=== PATIENT | female | born 1990 | race Caucasian/White ===

== ENCOUNTER 2017-09-21 20:09 | Inpatient (IN) | payer OTHER, BC ==
[~2017-09-21] VITALS: Ht 175.3 cm; Wt 112.0 kg
--- NOTE | 2017-09-22 04:40 | NUR ---
09/22/17 0440 DE LA TORRE,ANGIE Simmons 0415: MOM BABY. DENIES N/V AND PAIN. DR. CLAIRE IN TO SPEAK WITH PATIENT. 0574: REPORT GIVEN TO [facility]BC RN.
--- NOTE | 2017-09-25 07:49 | PR ---
[facility] [address] [facility] [place] [address] Signed PP Progress Notes Datetime Report Generated by CPN: 09/25/2017 07:49 SUBJECTIVE: [id number] Pain: Within normal limits Nausea/Vomiting: Denies Vital Signs: [id number] Vital Signs: Reviewed; Within Normal Limits Notable Details: Normotensive EXAM: [id number] Cardiovascular: Normal Respiratory: Normal Abdomen/Uterus: Normal Lochia: Normal Breasts: Normal CVA Tenderness: Normal Extremities: Normal Incision: Normal Progress: Normal IMPRESSION/PLAN/PROCEDURES: [id number] Impression: Normal progression Other Impression: HELLP - resolving Plan: Discharge Procedures: None Progress Notes: Doing well, ready to go home. Signing Physician: Abigail Claire MD CC: *Electronically Signed* 09/25/17 0749 ABIGAIL CLAIRE MD PATIENT NAME: DIAMOND FOX PROGRESS NOTE DATE OF : [birth year] PHYSICIAN: ABIGAIL CLAIRE MD RPT #: [id number] REPORT IS CONFIDENTIAL AND NOT TO BE RELEASED WITHOUT AUTHORIZATION
--- NOTE | 2017-09-25 10:41 | OR ---
[facility] [address] [place], [place] [address] Signed DATE OF OPERATION: 09/22/2017 SURGEON: Arvind Mondragon MD PREOPERATIVE DIAGNOSES: 1. HELLP syndrome. 2. Spontaneous rupture of membranes, remote from delivery. POSTOPERATIVE DIAGNOSES: 1. HELLP syndrome. 2. Spontaneous rupture of membranes, remote from delivery. PROCEDURE: Primary low-transverse segment cesarian section, delivery of live male . ANESTHESIA: Spinal. ESTIMATED BLOOD LOSS: 700 mL. COMPLICATIONS: None. DRAINS: Bernabe to bladder. FINDINGS: Live male infant, Apgars 8 and 9, weight 8 pound 0 ounces. Normal uterus. Normal tubes and ovaries bilaterally. DESCRIPTION: The patient was brought into the operating room, placed in supine position after adequate spinal anesthesia was obtained, prepped and draped in usual sterile fashion. The patient already had a Bernabe catheter in place. Pfannenstiel skin incision was made with a scalpel and extended through the subcutaneous tissue with a Bovie. The fascia was nicked with a scalpel and extended in a transverse fashion using curved scissors. The underlying abdominal musculature was bluntly and sharply from the fascia above and below the incision. The abdominal musculature was bluntly along the midline. The peritoneum was grasped with hemostats, elevated and then opened and extended in a vertical fashion using Metzenbaum scissors. The Savage self-retaining retractor was then inserted into the incision and tightened in place. Lower uterine segment was identified. The bladder was noted to be well below the area and so, a small que was made in the midline lower uterine segment. Finger dissection was used to extend the incision in a transverse fashion. Clear fluid came from the incision. The infant was noted to be in vertex OP presentation. The infant's head was easily delivered from the incision. The rest of the infant was easily delivered from the incision, and the mouth and nose were Electronically Signed By: ARVIND MONDRAGON MD 09/25/17 1041 PATIENT NAME: DIAMOND FOX OPERATIVE REPORT DATE OF : 86 PHYSICIAN: ARVIND MONDRAGON MD REPORT #: [id number] REPORT IS CONFIDENTIAL AND NOT TO BE RELEASED WITHOUT AUTHORIZATION [facility] [address] [place], [place] [address] Signed suctioned with bulb syringe. Umbilical cord was doubly clamped and cut. The infant was passed off the table in good condition to awaiting nurse. Placenta was manually removed and uterine cavity was explored with lap pad to remove any retaining membrane. An angled stitch of #0 Monocryl was placed in one end of the incision and a running locking stitch of #0 Monocryl starting at the other end used to close the incision. A second running stitch of #0 Monocryl was used to imbricate the first layer. A small amount of bleeding in the right angle where the extension continued to the broad ligament, so finger was placed behind the broad ligament, and [id number] stitch of #0 Monocryl was carefully placed in this area. This did seem to control the bleeding. The entire pelvis was irrigated, suctioned, examined, and noted to have good hemostasis. The Savage retractor was removed. Evicel was then placed along the incision and particularly on the right angle, and then sheet of ACell placed over the lower uterine segment. The interval peritoneum was closed using running stitch of 2-0 Vicryl suture. The abdominal musculature was reapproximated using interrupted stitch of #0 Vicryl suture. Abdominal wall incision was irrigated, suctioned, and examined, and any bleeding spots cauterized with Bovie. Powdered ACell was sprinkled on the abdominal musculature and then the fascia was closed using 2 running stitch of #0 Vicryl suture meeting in the midline. Subcutaneous tissue was irrigated, suctioned, examined, and any bleeding spots were cauterized with Bovie. The fat and subcutaneous tissue were then closed using interrupted stitches of 3-0 Vicryl suture. Skin was reapproximated using skin clips. The patient tolerated the procedure well and went to recovery room in good condition. Sponge, needle, and instrument counts were correct at the end of procedure. MD CLAUDIA Navarro/MODL /[id number] Electronically Signed By: ARVIND MONDRAGON MD 09/25/17 1041 PATIENT NAME: DIAMOND FOX OPERATIVE REPORT DATE OF : 86 PHYSICIAN: ARVIND MONDRAGON MD REPORT #: [id number] REPORT IS CONFIDENTIAL AND NOT TO BE RELEASED WITHOUT AUTHORIZATION
== END 2017-09-25 12:35 | disposition home or self-care (01) | DRG 766 ==
LOC: FBCO 20:09 → FBC 22:30
PROVIDERS: General Practice; ADMIT Obstetrics & Gynecology
PROC: 10D00Z1 Extraction of Products of Conception, Low, Open Approach (ICD-10-PCS; principal; 2017-09-22 03:09)
PROC: 3E0234Z Introduction of Serum, Toxoid and Vaccine into Muscle, Percutaneous Approach (ICD-10-PCS; 2017-09-24)
DX: O14.24 HELLP syndrome, complicating childbirth (principal); O42.02 Full-term premature rupture of membranes, onset of labor within 24 hours of rupture; Z3A.40 40 weeks gestation of pregnancy; Z37.0 Single live birth; Z23 Encounter for immunization
CPT/HCPCS: 01961; 36415; 36430; 59025; 80053; 82570; 83615; 83735; 84156; 84550; 85027; 86850; 86900; 86901; 90707; 99213; C1763; J0690; J1100; J1170; J1650; J1885; J2274; J2405; J2590; J3010; J3475; J7120; P9035

== ENCOUNTER → 2017-09-21 | Emergency (ER) | payer OTHER, BC ==
[~2017-09-21] VITALS: Ht 175.3 cm; Wt 108.9 kg
[~2017-09-21] MED LIST: UNISOM25 MG PO
--- OUTSIDE RECORDS SUMMARY | 2017-09-21 20:19 | XMS ---
Demographics + + + | Address | [address] | | | [place] [address] | + + + | Preferred Language | Unknown | + + + | Marital Status | Unknown | + + + | Faith Affiliation | Unknown | + + + | Race | Unknown | + + + | Ethnic Group | Unknown | + + + Author + + + | Author | [facility] | + + + | Organization | [facility] | + + + | Address | [address] | | | [place] [address] | + + + | Phone | | + + + Care Team Providers + + + + | Care Hansard Reporter Name | Role | Phone | + + + + Unavailable | Unavailable | + + + + PROBLEMS +---------+ + + +--------+ + + | Type | Condition | ICD9-CM | [id number] | Onset | Condition | SNOMED | | | | Code | Code | Dates | Status | Code | +---------+ + + +--------+ + + | Problem | Encounter | | Z34.00 | | Active | [id number] | | | for | | | | | | | | supervisio | | | | | | | | n of | | | | | | | | normal | | | | | | | | first | | | | | | | | , | | | | | | | | | | | | | | | | unspecifie | | | | | | | | d | | | | | | | | trimester | | | | | | +---------+ + + +--------+ + + ALLERGIES No Information SOCIAL HISTORY Never Assessed PLAN OF CARE VITAL SIGNS MEDICATIONS Unknown Medications RESULTS No Results PROCEDURES No Known procedures IMMUNIZATIONS No Known Immunizations MEDICAL (GENERAL) HISTORY + + +------+ | Type | Description | Date | + + +------+ | Medical History | depression | | + + +------+ | Medical History | asthma - exercise induced | | + + +------+ | Medical History | Sleep Problems | | + + +------+"
--- NOTE | 2017-09-22 07:00 | EKG ---
[facility] [address] [facility] [place] [address] Signed Normal sinus rhythm Normal ECG No previous ECGs available Confirmed by BROOK AMBROCIO MD ([id number]) on 09/22/2017 7:00:39 AM Electronically Signed By: BROOK AMBROCIO MD 09/22/17 0700 PATIENT NAME: DIAMOND FOX Electrocardiogram DATE OF : 86 PHYSICIAN: BROOK AMBROCIO MD REPORT #: [id number] REPORT IS CONFIDENTIAL AND NOT TO BE RELEASED WITHOUT AUTHORIZATION
== END | disposition home or self-care (01) ==
LOC: ED 18:25
DX: O99.89 Other specified diseases and conditions complicating pregnancy, childbirth and the puerperium (principal); R07.89 Other chest pain; Z79.899 Other long term (current) drug therapy; Z88.8 Allergy status to other drugs, medicaments and biological substances; Z3A.40 40 weeks gestation of pregnancy
CPT/HCPCS: 80053; 81001; 84484; 85025; 93005; 93010; 99284; J1100; J2274; J2405; J2590; J3010; J7120

== ENCOUNTER 2019-10-25 21:15 | Inpatient (IN) | payer OTHER, BC ==
[~2019-10-25] VITALS: Ht 175.3 cm; Wt 120.0 kg
--- NOTE | 2019-10-26 00:36 | NUR ---
10/26/19 0036 [place] 0020) PATIENT ARRIVES ALERT AND ORIENTED, 0 C/O PAIN IV RUNNING GOOD
--- NOTE | 2019-10-26 10:31 | PR ---
[facility] [address] [facility] [place], [place] [address] Signed PP Progress Notes Datetime Report Generated by CPN: 10/26/2019 10:31 SUBJECTIVE: [id number] Pain: Within normal limits Nausea/Vomiting: Denies Vital Signs: [id number] Vital Signs: Reviewed; Within Normal Limits Notable Details: PP Hgb/Hct = 10.3/29.9, Plts = 103, Mag = 4.5 EXAM: [id number] Abdomen/Uterus: Normal Lochia: Normal Extremities: Normal Incision: Normal Exam Comments: DTR's 1+ IMPRESSION/PLAN/PROCEDURES: [id number] Impression: Normal progression; Induced Hypertension Other Plans: Continue Procadia XL 320 mg daily Progress Notes: Doing well, without complaint. Good urine output. MagSO4 running at 2 gm/hr, will D/C @ 0600 tomorrow. Signing Physician: Abigail Claire MD Copies: ~ *Electronically Signed* 10/26/19 1031 ABIGAIL CLAIRE MD PATIENT NAME: DIAMOND FOX PROGRESS NOTE DATE OF : 86 PHYSICIAN: ABIGAIL CLAIRE MD RPT #: [id number] REPORT IS CONFIDENTIAL AND NOT TO BE RELEASED WITHOUT AUTHORIZATION
--- NOTE | 2019-10-26 10:42 | OR ---
[facility] [address] [place], [place] [address] Signed DATE OF OPERATION: 10/25/2019 SURGEON: Arvind Mondragon MD Patient of Dr. Mondragon. PREOPERATIVE DIAGNOSES: DiChorionic diamniotic twins, 36 weeks gestation, preeclampsia with severe features, and previous section. POSTOPERATIVE DIAGNOSES: DiChorionic diamniotic twins, 36 weeks gestation, preeclampsia with severe features, and previous section. PROCEDURES PERFORMED: Repeat low transverse segment section, twin delivery of live male and female infants. COMMERCIAL SALES MANAGER: Xavi Randle DO. ANESTHESIA: Spinal. ESTIMATED BLOOD LOSS: 500 mL. COMPLICATIONS: None. DRAINS: Bernabe to bladder. FINDINGS: Twin with baby A on the right throughout the , boy, Apgars 8 and 9, which did come out second. Baby B, according to ultrasound on the left, female , Apgars 8 and 9, deliverd first. Normal uterus, normal tubes and ovaries bilateral with a thin bladder flap adhesion on the left side of the uterus, otherwise no adhesions noted. Electronically Signed By: ARVIND MONDRAGON MD 10/26/19 1042 PATIENT NAME: DIAMOND FOX OPERATIVE REPORT DATE OF : 86 REPORT #: [id number] PHYSICIAN: ARVIND MONDRAGON MD PCP: LEONOR CRAWFORD MD REPORT IS CONFIDENTIAL AND NOT TO BE RELEASED WITHOUT AUTHORIZATION [facility] [address] [place], [place] [address] Signed DESCRIPTION OF PROCEDURE: The patient was brought into the operating room, placed in supine position. After adequate spinal anesthesia was obtained was prepped and draped in usual sterile fashion. Bernabe catheter was placed in the bladder. A Pfannenstiel skin incision was made with a scalpel through previous surgical scar. Subcutaneous tissue was dissected with the scalpel and Bovie. The fascia was then nicked with scalpel and extended in transverse fashion using curved scissors. The underlying abdominal musculature was bluntly and sharply from the fascia above and below the incision. The abdominal musculature was bluntly and sharply along the midline. The peritoneum was grasped with pickups, elevated, nicked with Metzenbaum scissors, and extended in vertical fashion and then opened bluntly. The Savage self-retaining retractor was inserted into the incision. Lower uterine segment was carefully nicked with a scalpel and extended in a transverse fashion using finger dissection. A band of bladder flap adhesions was off to the left and was not in the way, so this was taken care of later. Upon opening the lower segment incision, two bulging sacs came out of the incision. The upper was towards the left and the head was easily palpable in this sac and the one to the right was lower further in and a hand was seen on the right. Because the head being in the incision, it was decided to open the left upper sac first, and the infant during the care labeled B was easily delivered through the incision, so this is a female infant with a true knot in the cord and it was loose. The cord was doubly clamped and cut. The infant was passed off table in good condition to waiting chemical librarian and two clamps were placed on this cord. The 2nd sac was then opened with pickups with teeth and the 's head noted to be deeper in the pelvis, the head was lifted up out of the pelvis, then easily delivered from the incision. This cord was doubly clamped and cut and this was baby boy labeled A during the care. This infant was passed off table in good condition to awaiting chemical librarian. The two separate placentas were each manually removed from the uterine cavity and the uterine cavity explored with lap pad to remove any retained membranes. An angle stitch of 0 Monocryl was placed at one end of the incision and a running locking stitch of 0 Monocryl used to close the incision. A 2nd running stitch of 0 Monocryl was used to imbricate the 1st layer. The band of adhesion was then clamped with two hemostats and cut with Metzenbaum scissors and the two ends stick-tied with 0 Vicryl suture. Good hemostasis was noted. The entire pelvis was irrigated, suctioned, examined, and good hemostasis was noted. The Savage retractor was removed, sheet of ACell placed over lower uterine segment. The anterior wall peritoneum was then closed using running stitch of 2-0 Vicryl suture. The abdominal musculature was reapproximated using interrupted stitches of 0 Vicryl suture. The entire abdominal wall was irrigated, suctioned, examined, any superficial bleeding spots cauterized with the Bovie. Powered ACell was sprinkled on the abdominal musculature. The fascia was then closed using two running stitches of 0 Vicryl suture meeting in the midline. Electronically Signed By: ARVIND MONDRAGON MD 10/26/19 1042 PATIENT NAME: DIAMOND FOX OPERATIVE REPORT DATE OF : 86 REPORT #: [id number] PHYSICIAN: ARVIND MONDRAGON MD PCP: LEONOR CRAWFORD MD REPORT IS CONFIDENTIAL AND NOT TO BE RELEASED WITHOUT AUTHORIZATION [place] [id number] Signed Subcutaneous tissue was irrigated, suctioned, examined. Any bleeding spots cauterized with the Bovie. Powered ACell was then sprinkled on the subcutaneous tissue. Subcutaneous tissue was then closed using interrupted stitches of 3-0 Vicryl suture and the skin reapproximated using skin clips. The patient tolerated the procedure well, went to recovery room in good condition. The sponge, needle, and instrument count correct at the end of the procedure. Arvind Mondragon MD MJB/MODL /[id number] Copies: ~ Electronically Signed By: ARVIND MONDRAGON MD 10/26/19 1042 PATIENT NAME: DIAMOND FOX OPERATIVE REPORT DATE OF : 86 REPORT #: [id number] PHYSICIAN: ARVIND MONDRAGON MD PCP: LEONOR CRAWFORD MD REPORT IS CONFIDENTIAL AND NOT TO BE RELEASED WITHOUT AUTHORIZATION
--- NOTE | 2019-10-27 12:54 | PR ---
[facility] [address] [facility] [place], [place] [address] Signed PP Progress Notes Datetime Report Generated by CPN: 10/27/2019 12:54 SUBJECTIVE: [id number] Pain: Within normal limits Nausea/Vomiting: Denies Vital Signs: [id number] Vital Signs: Reviewed; Within Normal Limits Notable Details: Hgb/Hct = 11.3/32.9, Platelets = 135 EXAM: [id number] Abdomen/Uterus: Normal Lochia: Normal Extremities: Normal Incision: Normal Exam Comments: DTR's 1+ IMPRESSION/PLAN/PROCEDURES: [id number] Impression: Normal progression Plan: Continue present management Other Plans: M<agSO4 discontinued 0600 today Procedures: None Progress Notes: Doing well, without complaint, voiding well. Increase activitiy and diet as tolerated. Signing Physician: Abigail Claire MD Copies: ~ *Electronically Signed* 10/27/19 1254 ABIGAIL CLAIRE MD PATIENT NAME: DIAMOND FOX PROGRESS NOTE DATE OF : 86 PHYSICIAN: ABIGAIL CLAIRE MD RPT #: [id number] REPORT IS CONFIDENTIAL AND NOT TO BE RELEASED WITHOUT AUTHORIZATION
--- NOTE | 2019-10-28 13:21 | PR ---
[facility] [address] [facility] [place], [place] [address] Signed PP Progress Notes Datetime Report Generated by CPN: 10/28/2019 13:21 SUBJECTIVE: [id number] Pain: Within normal limits Nausea/Vomiting: Denies Vital Signs: [id number] Vital Signs: Reviewed; Within Normal Limits Notable Details: Hgb/Hct = 9.5/27.5. Plts = 126 EXAM: [id number] Abdomen/Uterus: Normal Lochia: Normal Extremities: Normal Incision: Normal Exam Comments: DTR's 1+ IMPRESSION/PLAN/PROCEDURES: [id number] Impression: Normal progression; Induced Hypertension Plan: Discharge Other Plans: M<agSO4 discontinued 0600 today Procedures: None Progress Notes: Doing well, without complaint. Patient worried about PP depression since had it last , so would like to start Prozac now instead of waiting until feeling worse. Babies not discharged yet, so will make her "Boarder Mom" Signing Physician: Arvind Claire MD Copies: ~ *Electronically Signed* 10/28/19 1321 ARVIND CLAIRE MD PATIENT NAME: DOMINIQUE,DIAMOND GOYAL PROGRESS NOTE DATE OF : 86 PHYSICIAN: ARVIND CLAIRE MD RPT #: [id number] REPORT IS CONFIDENTIAL AND NOT TO BE RELEASED WITHOUT AUTHORIZATION
--- NOTE | 2019-10-28 14:05 | NUR ---
PT WITH PTS' DAD-EXCITED NEW GRANDFATHER OF TWINS! EVERYONE IS DOING WELL AND HE IS TOO. HE MENTIONED THAT BOTH FAMILIES HAVE JUST MOVED TO NEW HOMES IN ANTICIPATION OF NEW ARRIVALS! GAVE ENCOURAGEMENT AND BLESSING, WILL FOLLOW NEEDED
== END 2019-10-28 19:51 | disposition home or self-care (01) | DRG 786 ==
LOC: FBCO 21:15 → FBC 22:41
PROVIDERS: ADMIT General Practice
PROC: 10D00Z1 Extraction of Products of Conception, Low, Open Approach (ICD-10-PCS; principal; 2019-10-25 22:59)
DX: O34.211 Maternal care for low transverse scar from previous cesarean delivery (principal); O60.14X2 Preterm labor third trimester with preterm delivery third trimester, fetus 2; O60.14X1 Preterm labor third trimester with preterm delivery third trimester, fetus 1; N85.8 Other specified noninflammatory disorders of uterus; Z3A.36 36 weeks gestation of pregnancy; Z37.2 Twins, both liveborn; O30.043 Twin pregnancy, dichorionic/diamniotic, third trimester; O14.14 Severe pre-eclampsia complicating childbirth; O90.81 Anemia of the puerperium; D64.9 Anemia, unspecified; O99.345 Other mental disorders complicating the puerperium; F53.0 Postpartum depression; O69.2XX2 Labor and delivery complicated by other cord entanglement, with compression, fetus 2; Z88.8 Allergy status to other drugs, medicaments and biological substances; Z79.82 Long term (current) use of aspirin
CPT/HCPCS: 01961; 36415; 82565; 83735; 84450; 84520; 84550; 85025; 85027; A9270; J0131; J0690; J1100; J1200; J2274; J2370; J2405; J2590; J3475; J7121